=== PATIENT | female | born 1950 | race Two or more races ===

== ENCOUNTER 2017-12-31 10:54 | Outpatient (CLI) | payer OTHER ==
[~2017-12-31 10:54] MED LIST: LEVAQUIN500 MG; LEVAQUIN750 MG PO; MEDROL4 MG PO; MILLIPRED DP5 M1; PROVENTIL3 ML/2.5 M IH; TUSSIONEX PENNKI5 ML PO
== END 2017-12-31 11:20 | disposition home or self-care (01) ==
LOC: TOM 10:54
DX: C34.91 Malignant neoplasm of unspecified part of right bronchus or lung (principal); D02.22 Carcinoma in situ of left bronchus and lung

== ENCOUNTER 2017-12-31 10:58 | Outpatient (CLI) | payer OTHER | END 2017-12-31 11:19 | disposition home or self-care (01) | LOC: MAMO-SONO 10:58 | DX: Z12.31 Encounter for screening mammogram for malignant neoplasm of breast (principal); Z87.898 Personal history of other specified conditions; N60.11 Diffuse cystic mastopathy of right breast; N60.12 Diffuse cystic mastopathy of left breast ==

== ENCOUNTER 2018-11-06 07:00 | Outpatient (CLI) | payer OTHER | END 2018-11-06 10:00 | disposition home or self-care (01) | LOC: RAD 07:00 | DX: D02.20 Carcinoma in situ of unspecified bronchus and lung (principal) | CPT/HCPCS: 71260; Q9965 ==

== ENCOUNTER 2019-01-22 11:12 | Outpatient (CLI) | payer OTHER | END 2019-01-22 11:31 | disposition home or self-care (01) | LOC: RAD 11:12 | DX: S92.909A Unspecified fracture of unspecified foot, initial encounter for closed fracture (principal) ==

== ENCOUNTER 2019-02-16 11:00 | Outpatient (CLI) | payer OTHER | END 2019-02-16 11:03 | disposition home or self-care (01) | LOC: MAMO-SONO 11:00 | DX: Z12.31 Encounter for screening mammogram for malignant neoplasm of breast (principal); Z87.898 Personal history of other specified conditions; N64.89 Other specified disorders of breast ==

== ENCOUNTER 2019-04-16 11:49 | Outpatient (CLI) | payer OTHER | END 2019-04-16 17:24 | disposition home or self-care (01) | LOC: RAD 11:49 | DX: M25.561 Pain in right knee (principal) ==

== ENCOUNTER → 2019-05-12 | Outpatient (CLI) | payer OTHER | END | disposition home or self-care (01) | LOC: NUCLEAR 11:00 | DX: I82.409 Acute embolism and thrombosis of unspecified deep veins of unspecified lower extremity (principal) ==

== ENCOUNTER 2019-06-05 10:25 | Outpatient (CLI) | payer OTHER | END 2019-06-05 10:31 | disposition home or self-care (01) | LOC: SONOGRAMA 10:25 → MAMO-SONO 06-08 09:15 | DX: K80.20 Calculus of gallbladder without cholecystitis without obstruction (principal) ==

== ENCOUNTER 2020-05-10 13:42 | Outpatient (CLI) | payer OTHER | END 2020-05-10 13:46 | disposition home or self-care (01) | LOC: TOM 13:42 | PROVIDERS: ATTEND Internal Medicine Pulmonary Disease | DX: R91.8 Other nonspecific abnormal finding of lung field (principal) ==

== ENCOUNTER → 2020-07-18 | Outpatient (CLI) | payer OTHER | END | disposition home or self-care (01) | LOC: TOM 11:16 | PROVIDERS: ATTEND Specialist | DX: I63.89 Other cerebral infarction (principal) ==

== ENCOUNTER 2021-12-19 12:49 | Outpatient (CLI) | payer OTHER | END 2021-12-19 12:52 | disposition home or self-care (01) | LOC: RAD 12:49 | PROVIDERS: ATTEND Specialist | DX: J45.998 Other asthma (principal) ==

== ENCOUNTER 2021-12-20 08:53 | Outpatient (CLI) | payer OTHER | END 2021-12-20 08:54 | disposition home or self-care (01) | LOC: SONOGRAMA 08:53 | PROVIDERS: ATTEND Internal Medicine Gastroenterology | DX: N28.89 Other specified disorders of kidney and ureter (principal); R10.84 Generalized abdominal pain ==

== ENCOUNTER 2022-06-05 10:06 | Outpatient (CLI) | payer OTHER | END 2022-06-05 10:10 | disposition home or self-care (01) | LOC: SONOGRAMA 10:06 | PROVIDERS: ATTEND Internal Medicine Gastroenterology | DX: R10.9 Unspecified abdominal pain (principal) ==

== ENCOUNTER 2024-08-19 13:09 | Outpatient (CLI) | payer OTHER | END 2024-08-19 13:28 | disposition home or self-care (01) | LOC: MAMO-SONO 13:09 | DX: Z12.31 Encounter for screening mammogram for malignant neoplasm of breast (principal) ==

== ENCOUNTER 2024-09-11 13:12 | Outpatient (CLI) | payer OTHER | END 2024-09-11 13:20 | disposition home or self-care (01) | LOC: NUCLEAR 13:12 | PROVIDERS: ATTEND Obstetrics & Gynecology | DX: M81.0 Age-related osteoporosis without current pathological fracture (principal) ==

== ENCOUNTER 2025-01-13 12:45 | Outpatient (CLI) | payer OTHER | END 2025-01-13 12:53 | disposition home or self-care (01) | LOC: TOM 12:45 | PROVIDERS: ATTEND Specialist | DX: C34.90 Malignant neoplasm of unspecified part of unspecified bronchus or lung (principal); Z90.2 Acquired absence of lung [part of]; Z85.118 Personal history of other malignant neoplasm of bronchus and lung ==